=== PATIENT | female | born 1995 | race Caucasian/White ===

== ENCOUNTER 2016-07-24 12:51 | Emergency (ER) | payer BC ==
--- NOTE | 2016-07-24 13:51 | Emergency Department Report ---
HPI - General Chief Complaint: Syncope Time Seen by Provider: 07/24/16 13:37 - HPI HPI: Room 4 The patient is a 20-year-old female presenting with a chief complaint syncope. The patient is approximately 12 weeks gestational age and went to an clinic seeking an . The patient states while at the clinic in [place] began to feel hot and then had a syncopal episode. The patient states when she came to the physicians at the clinic for Cytotec and ibuprofen because she complained of lower abdominal pain. The patient was subsequently sent to the ED for evaluation. Patient complained of lower abdominal pain and hematuria when she arrived in the ED. When asked how she is feeling currently the patient replies she "feels fine." Location: [see above] Duration: [see above] Quality: "Hot" Severity: Moderate Modifying factors: [see above] Context: [see above] Mode of transportation: [not driving] ED Past Medical Hx - Past Medical History Hx Asthma: Yes - Surgical History Past Surgical History?: No - Family History Family history: no significant - Social History Smoking Status: Never Smoker Substance Use Type: None ED Review of Systems ROS: Stated complaint: FAINTING Other details as noted in HPI Comment: All other systems reviewed and negative Constitutional: denies: chills, fever Eyes: denies: eye pain, eye discharge, vision change ENT: denies: ear pain, throat pain Respiratory: denies: cough, shortness of breath, wheezing Cardiovascular: denies: chest pain, palpitations Endocrine: no symptoms reported Gastrointestinal: denies: abdominal pain, nausea, diarrhea Genitourinary: denies: urgency, dysuria, discharge Musculoskeletal: denies: back pain, joint swelling, arthralgia Skin: denies: rash, lesions Neurological: other (syncope) Psychiatric: denies: anxiety, depression Hematological/Lymphatic: denies: easy bleeding, easy bruising Physical Exam - Physical Exam Vital Signs: Vital Signs 07/24/16 12:54 Temperature 98.2 F Pulse Rate 96 H Respiratory 16 Rate Blood Pressure 120/80 O2 Sat by Pulse 100 Oximetry Physical Exam: GENERAL: The patient is well-developed well-nourished female lying on stretcher not appearing to be in acute distress. [] HEENT: Normocephalic. Atraumatic. Extraocular motions are intact. Patient has moist mucous membranes. NECK: Supple. No meningitic signs are noted. There is no adenopathy noted. CHEST/LUNGS: Clear to auscultation. There is no respiratory distress noted. HEART/CARDIOVASCULAR: Regular. There is no tachycardia. There is no gallop rub or murmur. ABDOMEN: Abdomen is soft, nontender. Patient has normal bowel sounds. There is no abdominal distention. SKIN: There is no rash. There is no edema. There is no diaphoresis. NEURO: The patient is awake, alert, and oriented. The patient is cooperative. The patient has no focal neurologic deficits. The patient has normal speech. Cranial nerves II through XII grossly intact, no drift MUSCULOSKELETAL: There is no evidence of acute injury. ED Course Vital Signs 07/24/16 12:54 Temperature 98.2 F Pulse Rate 96 H Respiratory 16 Rate Blood Pressure 120/80 O2 Sat by Pulse 100 Oximetry ED Medical Decision Making - Lab Data Result diagrams: 07/24/16 13:48 07/24/16 13:48 Laboratory Tests 07/24/16 07/24/16 07/24/16 13:48 13:48 13:48 WBC 8.8 RBC 4.38 Hgb 13.3 Hct 39.4 MCV 90 MCH 30 MCHC 34 RDW 13.0 L Plt Count 255 Lymph % (Auto) 13.9 Tucker % (Auto) 4.6 Eos % (Auto) 0.2 Baso % (Auto) 0.3 Lymph # 1.2 Tucker # 0.4 Eos # 0.0 Baso # 0.0 Seg Neutrophils % 81.0 H Seg Neutrophils # 7.1 PT 13.4 INR 1.03 APTT 27.9 D-Dimer < 135.0 Sodium 135 L Potassium 3.7 Chloride 98.8 Carbon Dioxide 19 L Anion Gap 21 BUN 9 Creatinine 0.7 Estimated GFR > 60 BUN/Creatinine Ratio 12.85 Glucose 78 Calcium 9.4 Total Creatine Kinase 78 CK-MB (CK-2) < 1.0 CK-MB (CK-2) Rel Index 1.2 Troponin T < 0.010 HCG, Quant Blood Type Ord Rhogam Gestat Weeks 07/24/16 07/24/16 13:48 13:48 WBC RBC Hgb Hct MCV MCH MCHC RDW Plt Count Lymph % (Auto) Tucker % (Auto) Eos % (Auto) Baso % (Auto) Lymph # Tucker # Eos # Baso # Seg Neutrophils % Seg Neutrophils # PT INR APTT D-Dimer Sodium Potassium Chloride Carbon Dioxide Anion Gap BUN Creatinine Estimated GFR BUN/Creatinine Ratio Glucose Calcium Total Creatine Kinase CK-MB (CK-2) CK-MB (CK-2) Rel Index Troponin T HCG, Quant 78809 H Blood Type O POSITIVE Ord Rhogam Gestat Weeks Rh pos - EKG Data -: EKG Interpreted by Me EKG shows normal: sinus rhythm Rate: normal - EKG Data When compared to previous EKG there are: previous EKG unavailable Interpretation: nonspecific ST-T wave kathy (T-wave inversion in lead V3) - Radiology Data Radiology results: report reviewed (pelvic ultrasound), image reviewed (pelvic ultrasound) Pelvic ultrasound (read by radiologist)-single live intrauterine gestation by crown-rump length 11 weeks 5 days age. - Differential Diagnosis vasovagal syncope, dehydration, PE, dysrhythmia Critical care attestation.: If time is entered above; I have spent that time in minutes in the direct care of this critically ill patient, excluding procedure time. ED Disposition Clinical Impression: Vasovagal syncope, Disposition: DISCHARGED TO HOME OR SELFCARE Is pt being admited?: No Does the pt Need Aspirin: No Condition: Stable Instructions: Syncope (ED) Additional Instructions: Return to the emergency department immediately should you develop worsening symptoms, fever, inability to tolerate food or liquid or any other concerns. Referrals: PRIMARY CARE, [Primary Care Provider] - 3-5 Days Time of Disposition: 17:03
[2016-07-24 14:03] LABS: Basophils % (Auto) 0.3 % (0.0-1.8); Eosinophils % (Auto) 0.2 % (0.0-4.3); Hematocrit 39.4 % (30.3-42.9); Hemoglobin 13.3 gm/dl (10.1-14.3); Mean Corpuscular HGB Conc 34 % (30-34); Mean Corpuscular Hemoglobin 30 pg (28-32); Mean Corpuscular Volume 90 fl (79-97); Platelet Count 255 K/mm3 (140-440); Red Blood Count 4.38 M/mm3 (3.65-5.03); White Blood Count 8.8 K/mm3 (4.5-11.0)
[2016-07-24 14:11] LABS: INR 1.03 (0.87-1.13)
[2016-07-24 14:12] LABS: Partial Thromboplastin Time 27.9 Sec. (24.2-36.6)
[2016-07-24 14:23] LABS: Anion Gap 21 mmol/L; BUN/Creatinine Ratio 12.85; Blood Urea Nitrogen 9 mg/dL (7-17); Calcium 9.4 mg/dL (8.4-10.2); Carbon Dioxide 19 mmol/L (22-30); Chloride 98.8 mmol/L (98-107); Creatine Kinase 78 units/L (30-135); Glucose 78 mg/dL (65-100); Potassium 3.7 mmol/L (3.6-5.0); Sodium 135 mmol/L (137-145)
[2016-07-24 14:53] LABS: Creatine Kinase MB < 1.0 ng/mL (0.0-4.0)
--- NOTE | 2016-07-24 16:22 | Ultrasound Report ---
FINAL REPORT PROCEDURE: US OB TRANSVAGINAL TECHNIQUE: Transvaginal grayscale and color imaging as well as duplex Doppler of the gravid pelvis was performed. HISTORY: lower abdominal pain, syncope COMPARISON: None FINDINGS: There is a single live intrauterine gestation. heart rate of 166 beats per minute was measured. There is no subchorionic hemorrhage or free fluid. Endocervical fluid is present without evidence of funneling. A normal amount of amniotic fluid is seen. [place]-rump length suggests an expected gestational age of 11 weeks 5 days. The right ovary is unremarkable. The left ovary was not seen transvaginally. IMPRESSION: Single live intrauterine gestation by crown-rump length 11 weeks 5 days age. Fluid within the cervical canal without funneling. Close follow-up is recommended. The left ovary was not seen seen transvaginally. Please see transabdominal report.
--- NOTE | 2016-07-24 16:27 | Ultrasound Report ---
FINAL REPORT PROCEDURE: US OB \T\lt; = 14 WEEKS FETUS TECHNIQUE: Transabdominal grayscale, color imaging, and duplex Doppler of the gravid pelvis was performed. HISTORY: lower abdominal pain, syncope COMPARISON: None FINDINGS: The uterus measures 10.9 x 7 x 8.1 centimeters. Single live intrauterine gestation is present, crown-rump length suggesting gest age of 11 weeks 5 days. heart rate was measured transvaginally. The cervix is 3.18 centimeters long without funneling. The left ovary measures 4.3 x 1.9 x 3.9 centimeters and contains a 3.1 x 1.4 x 3 centimeter cyst with internal echoes. There is normal blood flow to the left ovary. The right ovary transabdominally measures 3.9 x 1.4 x 2.9 centimeters a demonstrated normal blood flow. heart rate of 174 beats per minute was measured. IMPRESSION: Single live intrauterine gestation at approximately 11 weeks 5 days. EDC by US 02/07/2017 3.1 x 1.4 x 3 centimeter complex cyst of the left ovary possibly degenerating corpus luteal. Follow-up to ensure resolution is recommended.
[2016-07-24 17:18] VITALS: BP 118/64
== END 2016-07-24 17:16 | disposition home or self-care (01) ==
LOC: ED 12:51
DX: O26.891 Other specified pregnancy related conditions, first trimester (principal); R55 Syncope and collapse; J45.909 Unspecified asthma, uncomplicated
CPT/HCPCS: 36415; 76801; 76817; 80048; 82550; 82553; 84484; 84702; 85025; 85379; 85610; 85730; 86900; 86901; 93005; 93010